=== PATIENT | female | born 1955 | race Caucasian/White ===

== ENCOUNTER 2020-08-30 16:59 | Outpatient (CLI) | payer OTHER, SELFPAY ==
--- NOTE | ~2020-08-30 | MM_ITS ---
EXAMINATION: MM screening elsy BI w tre HISTORY: Screening mammogram TECHNIQUE: Craniocaudal and mediolateral oblique 3-D tomosynthesis images were obtained and synthetic 2-D images were generated. CAD analysis was submitted and interpreted. COMPARISON: 03/12/2019 diagnostic right digital mammogram and limited right breast ultrasound 02/25/2019, 12/31/2017, 10/05/2016 bilateral digital screening mammogram examinations BREAST PARENCHYMAL COMPOSITION: There are scattered areas of fibroglandular density. FINDINGS: There is mild stable fibroglandular asymmetry. There is no evidence of suspicious mass, destiney cification, or architectural distortion to suggest malignancy in either breast. There has been no christo picious interval change. IMPRESSION: 1. No mammographic evidence of malignancy. 2. Recommend routine screening mammography in one year. BI-RADS Category 2: Benign finding(s). Reviewed, dictated and finalized at location A.
== END 2020-08-30 17:00 | disposition home or self-care (01) ==
LOC: ANHIMG 17:03
PROVIDERS: PCP Family Medicine; Visit Provider Obstetrics & Gynecology
DX: Z12.31 Encounter for screening mammogram for malignant neoplasm of breast (principal)
CPT/HCPCS: 77063; 77067

== ENCOUNTER 2021-01-02 18:27 | Emergency (ER) | payer OTHER, SELFPAY ==
--- NOTE | 2021-01-02 18:34 | ECG_ITS ---
Measurements Intervals [place] Rate: 88 P: 44 WI: 135 QRS: 71 QRSD: 90 T: 51 QT: 335 QTc: 407 Interpretive Statements SINUS RHYTHM NORMAL ECG Electronically Signed On 01-02-2021 19:24:13 [employer] by Jimenez Mark D.O.
[2021-01-02 18:38] VITALS: BP 119/70; PULSE 94; RESP 18; TEMP 36.3; O2SAT 100
[2021-01-02 20:50] VITALS: BP 129/79; PULSE 84; RESP 14; O2SAT 97
[2021-01-02 21:30] VITALS: BP 115/76; PULSE 86; RESP 19; O2SAT 96
[2021-01-02 21:30] LABS: Basophils Absolute Auto 0.1 K/mm3 (0.0-0.1); Basophils Percent Auto 1.2 % (0.2-1.2); Eosinophils Absolute Auto 0.1 K/mm3 (0-0.3); Eosinophils Percent Auto 1.5 % (0-4.4); Hematocrit 38.2 % (37.0-47.0); Hemoglobin 13.1 g/dL (12.0-15.0); Immature Granulocyte Absolute 0.02 K/mm3 (0.00-0.031); Immature Granulocyte Percent A 0.3 % (0-0.5); Lymphocytes Absolute Auto 0.83 K/mm3 (0.9-3.2); Lymphocytes Percent Auto 12.2 % (18.3-44.2); Mean Corpuscular HGB Conc 34.3 g/dl (32-36); Mean Corpuscular Hemoglobin 31.7 pg (26-34); Mean Corpuscular Volume 92.5 fl (80-100); Mean Platelet Volume 8.4 fl (7.4-10.4); Monocytes Absolute Auto 0.5 K/mm3 (0.1-0.6); Monocytes Percent Auto 7.9 % (2.6-8.5); Neutrophils Absolute Auto 5.2 K/mm3 (1.3-6.7); Neutrophils Percent Auto 76.9 % (45.5-73.1); Platelet Count Result 265 k/mm3 (150-375); Red Blood Count 4.13 M/mm3 (4.2-5.4); Red Cell Distribution Width 12.3 % (11.5-14.5); White Blood Count 6.8 K/mm3 (4.5-10.0)
--- NOTE | 2021-01-02 21:41 | ED.ARRPALP ---
HPI - Arrhythmia/Palpitations General Chief Complaint: Arrhythmia/Palpitations Stated Complaint: irregular heart beat Time Seen by Provider: 01/02/21 20:59 Source: patient Mode of arrival: ambulatory Limitations: no limitations History of Present Illness HPI narrative: This patient is a 65 year old female with history of paroxysmal atrial fibrillation who presents for evaluation of palpitations. She started having episodes yesterday in which she felt like her heart stopped. She reports having 2 episodes yesterday. Today it seems to be happening more frequently. She states she listened to her heart and she says it seemed like a pause. She denies associated chest pain, shortness of breath or dizziness. She denies nausea, vomiting, diarrhea. Related Data Allergies Allergy/AdvReac Type Severity Reaction Status Date / Time No Known Allergies Allergy Verified 04/11/20 11:05 Review of Systems Review of Systems: All systems reviewed & are unremarkable except as noted in HPI and below PMFSH Past Medical History Medical History (Updated 01/03/21 @ 00:00 by Elisabeth Vitale) Paroxysmal atrial fibrillation Surgical History Surgical History (Updated 04/11/20 @ 11:07 by Ariane Hankins MA) H/O dilation and curettage Hx of tubal ligation Family History Family History Father Family history of cardiac disorder Other No family history of cardiovascular disease No family history of cerebrovascular accident (CVA) Social History Social History Smoking status: Never smoker Alcohol intake: never Exam Const: General: no acute distress and alert Orientation/consciousness: patient oriented x3 Eyes: EOM: EOMs intact bilaterally Resp: Effort & Inspection: normal respiratory effort and no retractions Auscultation: clear to auscultation bilaterally Cardio: Rate: regular rate Rhythm: regular rhythm Heart sounds: no murmurs GI: GI Palp: Yes Soft to palpation, No Tenderness to palpation present (GI) and No Guarding due to palpation present (GI) Auscultation: normal bowel sounds Neuro: General: patient oriented x3 and moves all extremities Extrem: General: normal to inspection Psych: Mental Status: mental status grossly normal Affect: normal affect Course Reevaluation(s) Reevaluation #1: I Discussed with patient I did not see any abnormalities on child monitor or EKG. Labs are unremarkable. She will follow up with PCP for further evaluation and possible holter monitor. Date: 01/02/21 Time: 22:18 Vital Signs Vital signs: Vital Signs Temperature 97.3 F L 01/02/21 18:38 Pulse Rate 94 01/02/21 18:38 Respiratory Rate 18 01/02/21 18:38 Blood Pressure 119/70 01/02/21 18:38 Pulse Oximetry 100 01/02/21 18:38 Temperature 97.3 F L 01/02/21 18:38 Pulse Rate 86 01/02/21 22:30 Respiratory Rate 19 01/02/21 22:30 Blood Pressure 112/70 01/02/21 22:30 Pulse Oximetry 96 01/02/21 22:30 MDM - Arrhythmia/Palpitations Lab Data Attestation: I reviewed the patient's lab results. Result diagrams: 01/02/21 21:24 01/02/21 21:24 Labs: Lab Results 01/02/21 01/02/21 Range/Units 21:24 21:24 WBC 6.8 (4.5-10.0) K/mm3 RBC 4.13 L (4.2-5.4) M/mm3 Hgb 13.1 (12.0-15.0) g/dL Hct 38.2 (37.0-47.0) % MCV 92.5 (80-100) fl MCH 31.7 (26-34) pg MCHC 34.3 (32-36) g/dl RDW 12.3 (11.5-14.5) % Plt Count 265 (150-375) k/mm3 MPV 8.4 (7.4-10.4) fl Immature Gran % (Auto) 0.3 (0-0.5) % Neut % (Auto) 76.9 H (45.5-73.1) % Lymph % (Auto) 12.2 L (18.3-44.2) % [place] % (Auto) 7.9 (2.6-8.5) % Eos % (Auto) 1.5 (0-4.4) % Baso % (Auto) 1.2 (0.2-1.2) % Lymph # (Auto) 0.83 L (0.9-3.2) K/mm3 [place] # (Auto) 0.5 (0.1-0.6) K/mm3 Eos # (Auto) 0.1 (0-0.3) K/mm3 Baso # (Auto) 0.1
[2021-01-02 21:42] LABS: Alanine Aminotransferase 17 U/L (4-35); Albumin Level 4.3 g/dL (3.5-5.1); Alkaline Phosphatase 62 U/L (38-126); Anion Gap 5 mmol/L (8-16); Aspartate Amino Transferase 21 U/L (14-36); Bilirubin,Total 0.3 mg/dL (0.2-1.3); Blood Urea Nitrogen 15 mg/dL (7-17); Calcium 9.3 mg/dL (8.4-10.2); Carbon Dioxide 28 mmol/L (22-30); Chloride 105 mmol/L (98-107); Estimated CRCL calculation 54 ml/min; Estimated Glomerular Filt Rate > 60; Glucose 111 mg/dL (65-105); Magnesium 2.2 mg/dL (1.6-2.3); Potassium 4.2 mmol/L (3.4-5.0); Sodium 138 mmol/L (137-145)
[2021-01-02 21:54] LABS: Troponin I < 0.012 ng/mL (0.000-0.034)
[2021-01-02 22:30] VITALS: BP 112/70; PULSE 86; RESP 19; O2SAT 96
== END 2021-01-02 22:50 | disposition home or self-care (01) ==
PROVIDERS: Emergency Provider General Practice; PCP Family Medicine
DX: R00.2 Palpitations (principal); I48.0 Paroxysmal atrial fibrillation
CPT/HCPCS: 36415; 80053; 83735; 84484; 85025; 93005; 99284

== ENCOUNTER 2021-01-12 09:41 | Outpatient (CLI) | payer OTHER, SELFPAY ==
--- NOTE | 2021-01-16 12:48 | WPDHOLTEREM ---
Holter/Event Monitor Holter/Event Monitor Date of procedure: 01/12/21 Procedure Type: 24 hour holter monitor Indications: PVC's Conclusion: 1. 24 hour holter monitor on 01/12/21. 2. Underlying rhythm is sinus rhythm. HR range 52-118 bpm; average HR 79 bpm. 3. There are 7 premature supraventricular complexes and 1 supraventricular couplet. No supraventricular tachycardia. 4. There are 86 premature ventricular complexes. No ventricular tachycardia. 5. No sinoatrial or atrioventricular blocks. No significant pauses greater than 2 seconds. 6. Patient reports flutter and hard beat which demonstrate sinus rhythm, HR range 61-92 bpm and one PVC.
== END 2021-01-12 09:42 | disposition home or self-care (01) ==
LOC: ANHCARD 09:42
PROVIDERS: PCP Family Medicine; Visit Provider Family Medicine
DX: I49.3 Ventricular premature depolarization (principal)
CPT/HCPCS: 93225; 93226

== ENCOUNTER 2021-01-25 08:45 | Outpatient (RCR) | payer OTHER, SELFPAY ==
--- NOTE | 2021-01-17 13:50 | PTOPEVAL ---
INITIAL PHYSICAL THERAPY EVALUATION and PLAN OF CARE Thank you for referring Jess Rogers to [facility].? Jess is scheduled to be seen for physical therapy? 1 visit in 1 week, 1 visit in 2 wks after 1st follow up visit. Please review, sign, date and return this plan of care HAI. I agree with and certify that the following plan of care is medically necessary. Referring Physician Date Admitting Provider: Attending Provider: Germaine Ram MD Referring Provider: Germaine Ram MD *PT Outpatient Evaluation Start: 01/17/21 12:41 Freq: Status: Active Protocol: Document 01/17/21 12:38 HOA (Rec: 01/17/21 13:50 HOA [id number]) Therapy Assessment Status Assessment Status Assessment Status Evaluation Outpatient Past Medical History Past Medical History Source of Past Medical History Recalled from Previous Visit, Confirmed with Patient/Family Cardiovascular History Hx Atrial Fibrillation Yes Hx Palpitations Yes: 2020 Reproductive History Hx Post Menopausal Yes Evaluation Information Problem Diagnosis unspecified urinary incontinence Onset couple years ago Subjective Information Jess began to notice some Query Text:As Reported By Patient/ urinary leakage with running Family then as time went on began to notice leakage with picking up grandkids. With sneeze or cough - can cross legs to help prevent urinary leakage. Wants to prevent worsening of leakage - prefers not to take medication - rather do exercise. 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 Home Meds Must Be Re-entered With Each Visit. Home Setting Home Type House,Multiple Levels Environmental Barriers Stairs, Greater than 4 Mobility Assistive Devices (Used Last 3 None Months) Comments Additional Prior Level of Function grandkids - 4 y.o. and 4 Comments months Pain Assessment Timing of Pain Assessment Timing of Pain Assessment Assessment Self Report Self Report Pain Level 0 Pain Score Pain Score 0: Self Report Cervical and Lumbar ROM Lumbar ROM Lumbar ROM 50% of Normal Lumbar Comments
--- NOTE | 2021-02-16 12:55 | PCPTNOTE ---
PHYSICAL THERAPY DISCHARGE SUMMARY Admitting Provider: Attending Provider: Germaine Ram MD Patient:Jess Rogers Date of :1955 Jess has not returned for any further treatments since 01/25/2021, therefore she will be discharged at this time. Jess?s initial visit was on 01/17/2021 12:30 and she had a total of 2 visits. The goals have been partially met. Thank you for referring Jess to [facility]. Please review, sign, date and return this discharge summary HAI. I have been updated about Jess's current status and I agree with discharge from the above service at this time. Referring Physician Date
== END 2021-02-20 07:53 | disposition home or self-care (01) ==
LOC: ANHPT 08:45
PROVIDERS: PCP Family Medicine; Referring Provider Obstetrics & Gynecology; Visit Provider Obstetrics & Gynecology
DX: R32 Unspecified urinary incontinence (principal)
CPT/HCPCS: 97110; 97161

== ENCOUNTER 2021-09-19 15:05 | Outpatient (CLI) | payer OTHER, SELFPAY ==
--- NOTE | ~2021-09-19 | MM_ITS ---
EXAMINATION: MM screening elsy BI w tre HISTORY: Screening mammogram TECHNIQUE: Craniocaudal and mediolateral oblique 3-D tomosynthesis images were obtained and synthetic 2-D images were generated. CAD analysis was submitted and interpreted. COMPARISON: 08/30/2020 bilateral screening mammogram 03/12/2019 diagnostic right mammogram and limited right breast ultrasound 02/25/2019, 12/31/2017, 10/05/2016, 09/22/2015, 08/19/2014 bilateral screening mammogram examinations BREAST PARENCHYMAL COMPOSITION: There are scattered areas of fibroglandular density. FINDINGS: Stable mild fibroglandular asymmetry. There is no evidence of suspicious mass, calcificatio n, or architectural distortion to suggest malignancy in either breast. There has been no suspicious i nterval change. IMPRESSION: 1. No mammographic evidence of malignancy. 2. Recommend routine screening mammography in one year. BI-RADS Category 2: Benign finding(s). Reviewed, dictated and finalized at location A. 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
== END 2021-09-19 15:06 | disposition home or self-care (01) ==
PROVIDERS: PCP Family Medicine; Visit Provider Obstetrics & Gynecology
DX: Z12.31 Encounter for screening mammogram for malignant neoplasm of breast (principal)
CPT/HCPCS: 77063; 77067

== ENCOUNTER 2022-01-12 02:33 | Day surgery (SDC) | payer OTHER, SELFPAY ==
[2021-12-29 13:44] VITALS: BMI 26.7
--- NOTE | 2022-01-11 13:41 | WPDANESEPP ---
Anes - Eval Pre Procedure Procedure: Operation Date: 01/12/22 10:00 Proposed Procedures p Colonoscopy - Patricio Stevens MD Date/Time: 01/11/22 13:41 Pre Op Diagnosis: constipation Patient Data Age: 66 Gender: F Height: 1.65 m Weight: 73 kg Allergies Allergy/AdvReac Type Severity Reaction Status Date / Time No Known Allergies Allergy Verified 12/29/21 13:43 Home Medications Medication Instructions Recorded Confirmed Type diltiazem HCl 120 mg See Rx Instructions .ROUTE 11/08/21 12/29/21 Rx capsule,extended release 24 hr, .COMPLEX #90 cap controlled sodium,potassium,mag sulfates 17.5 See Rx Instructions PO .COMPLEX 12/22/21 Rx gram-3.13 gram-1.6 gram oral soln #354 ml Patient hx anesthesia problems: none Family hx anesthesia problems: none Results Review: All pre-operative results and documents have been reviewed as part of the pre-operative evaluation. [facility] Past Medical History Medical History (Updated 01/11/22 @ 13:41 by Angelito Vincent DO) Frequent PVCs Paroxysmal atrial fibrillation Surgical History Surgical History H/O dilation and curettage Hx of tubal ligation Family History Family History Father Family history of cardiac disorder Other No family history of cardiovascular disease No family history of cerebrovascular accident (CVA) Social History Social History Alcohol intake: never Living arrangements: alone Spiritual care concerns: No Exam Day of Procedure 01/11/22 13:41
[2022-01-12 09:10] VITALS: BP 124/79; PULSE 80; RESP 16; TEMP 36.9; O2SAT 100; BMI 26.6
[2022-01-12] MEDS: LACTATED RINGERS 1,000 ML 150 ML IV CONT (09:39)
--- NOTE | 2022-01-12 09:47 | WPDANESEFPP ---
Anes - Eval Final PreProcedure Day of Procedure 01/12/22 09:47 Patient weight: overweight Heart: regular rate and rhythm Lungs: clear to auscultation Airway: Mallampati scale class II Last oral intake: >/= 8 hours ASA classification: II Emergent: no Anesthetic plan: proceed Anesthesia type and monitoring: general GIVS and standard monitoring Results Review: All pre-operative results and documents have been reviewed as part of the pre-operative evaluation. Informed Consent: The patient's anesthetic plan and its attendant risks and benefits were discussed with the patient/family/POA. Questions were solicited and answers provided to the satisfaction of the patient/family/POA.
--- NOTE | 2022-01-12 09:51 | WPDGICN ---
Assessment and Plan Assessment and plan (1) Encounter for screening colonoscopy: Code(s): Z12.11 - Encounter for screening for malignant neoplasm of colon Status: Acute Assessment and Plan: Neoplasia screening advised because of her age. Colonoscopy will be performed. (2) Constipation: Code(s): K59.00 - Constipation, unspecified Status: Acute Assessment and Plan: Chronic idiopathic constipation appears likely. High-fiber diet is advised. Milk of magnesia twice a week basis is advised this can be increased if necessary. Colonoscopy will be arranged to exclude organic disease. GI Consult Note Consult date/time: 01/12/22 09:51 HPI: Jess Rogers is a 66 year old female Presents for screening colonoscopy. Patient has a long history of constipation. No specific etiology has been identified. Patient denies abdominal pain. She has had no bleeding. Family history is noncontributory. Patient does use magnesium or MiraLax on a p.r.n. basis but this often is not enough uncertain frequently has to disimpact herself. Screening colonoscopy is advised today to exclude organic disease contributing to constipation. Review of Systems Review of Systems: All systems reviewed & are unremarkable except as noted in HPI and below PMFSH Past Medical History Medical History (Updated 01/12/22 @ 09:53 by Patricio Stevens MD) Frequent PVCs Paroxysmal atrial fibrillation Surgical History Surgical History H/O dilation and curettage Hx of tubal ligation Family History Family History Father Family history of cardiac disorder Other No family history of cardiovascular disease No family history of cerebrovascular accident (CVA) Social History Social History Alcohol intake: never Living arrangements: alone Spiritual care concerns: No Meds Home Medications and Allergies Home Medications Medication Instructions Recorded Confirmed Type diltiazem HCl 120 mg See Rx Instructions .ROUTE 11/08/21 01/12/22 Rx capsule,extended release 24 hr, .COMPLEX #90 cap controlled Allergies Allergy/AdvReac Type Severity Reaction Status Date / Time No Known Allergies Allergy Verified 01/12/22 09:21 Vital Signs Vital Signs - 24 hr 01/12/22 09:10 Temperature 98.4 F Pulse Rate 80 Respiratory Rate 16 Blood Pressure 124/79 Pulse Oximetry 100 Exam Narrative: Physical exam reveals patient to be alert. Vital signs stable. HEENT exam is unremarkable. Patient is anicteric. Lungs are clear to auscultation and percussion. Heart is without murmur or extra sounds. Abdominal exam bowel sounds are present soft nontender with no organomegaly. Digital external rectal exam is normal.
[2022-01-12 10:17] VITALS: BP 91/56; PULSE 77; RESP 21; O2SAT 98
[2022-01-12 10:27] VITALS: BP 93/61; PULSE 77; RESP 15; O2SAT 98
[2022-01-12 10:37] VITALS: BP 106/72; PULSE 64; RESP 15; O2SAT 100
== END 2022-01-12 10:52 | disposition home or self-care (01) ==
PROVIDERS: PCP Family Medicine; Visit Provider Internal Medicine Gastroenterology
PROC: 0DJD8ZZ Inspection of Lower Intestinal Tract, Via Natural or Artificial Opening Endoscopic (ICD-10-PCS; CPT 45378; principal; 2022-01-12 10:00)
DX: Z12.11 Encounter for screening for malignant neoplasm of colon (principal); K59.00 Constipation, unspecified; I49.3 Ventricular premature depolarization; I48.0 Paroxysmal atrial fibrillation
CPT/HCPCS: 45378; J2704; J7120

== ENCOUNTER → 2022-05-11 13:40 | Outpatient (CLI) | payer OTHER, SELFPAY ==
--- NOTE | ~2022-05-11 | MR_ITS ---
EXAMINATION: MR knee RT wo con DATE: 05/11/2022 14:28 INDICATION: Anterior right knee pain x2 months. No trauma. TECHNIQUE: Magnetic resonance imaging (MRI) of the right knee was performed without intravenous contr ast. Sequences included axial PD-weighted FS FSE, coronal PD-weighted FSE and PD-weighted FS FSE, sag ittal PD-weighted FSE, and sagittal T2-weighted FS FSE. COMPARISON: None. FINDINGS: Medial compartment: Extensive degenerative signal change in the reduced volume meniscus, with medial extrusion, and linea r apical and horizontal areas of signal likely representing degenerative tears. Full-thickness cartil age loss. Moderate osteophytosis. Lateral compartment: Moderate cartilage thinning. Oblique undersurface tear of the posterior horn. Mild osteophytosis. Patellofemoral compartment: Full-thickness cartilage loss at the median ridge. Mild osteophytosis. Retinacula are intact. Ligaments and tendons: Flexor and extensor tendons are intact. ACL, PCL, MCL, and LCL are intact. Fluid: No significant joint fluid. Trace Monte's cyst. Osseous/other: Focal areas of subchondral marrow edema on the median ridge of the patella and on the femoral and tib ial surfaces in the medial compartment. IMPRESSION: 1. Severe osteoarthritic change in the medial compartment. 2. Degenerative signal change and tearing of the medial meniscus. 3. Oblique undersurface tear of the posterior horn, lateral meniscus. 4. Chondromalacia patella. Reviewed, dictated and finalized at location K.
== END ==
PROVIDERS: PCP Orthopaedic Surgery; Visit Provider Orthopaedic Surgery
DX: M25.551 Pain in right hip (principal); M17.11 Unilateral primary osteoarthritis, right knee; S83.241A Other tear of medial meniscus, current injury, right knee, initial encounter; S83.281A Other tear of lateral meniscus, current injury, right knee, initial encounter; M94.261 Chondromalacia, right knee
CPT/HCPCS: 73721

== ENCOUNTER 2023-02-24 16:52 | Emergency (ER) | payer MEDICARE, SELFPAY ==
[2023-02-24 17:02] VITALS: BP 103/79; PULSE 66; RESP 16; TEMP 36.9; O2SAT 100
--- NOTE | 2023-02-24 17:18 | ED.FEMALEGU ---
HPI - Female Genitourinary General Chief complaint: Urogenital-Female Stated complaint: uti Time Seen by Provider: 02/24/23 17:18 Source: patient Mode of arrival: ambulatory Limitations: no limitations History of Present Illness HPI Narrative: 67-year-old female presents with complaint of urinary frequency, urgency, dysuria since yesterday. Afebrile. Denies nausea vomiting diarrhea. Patient also reports some mild itching. 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 States she has to wear pads due to incontinence and she is concerned that wearing the pad and sweating cause a decent action. Denies any vaginal discharge. All systems reviewed and negative except as noted above. Related Data Home Medications Medication Instructions Recorded Confirmed magnesium oxide 250 mg PO DAILY 04/25/22 02/24/23 multivitamin 1 tablet PO DAILY 04/25/22 02/24/23 cholecalciferol (vitamin D3) 125 125 mcg PO DAILY 09/03/22 02/24/23 mcg (5,000 unit) capsule Allergies Allergy/AdvReac Type Severity Reaction Status Date / Time No Known Allergies Allergy Verified 02/24/23 16:53 Review of Systems Review of Systems: CONSTITUTIONAL: Denies fever, chills, or sweats. EYES: Denies visual changes, redness, or discharge. ENT: Denies rhinorrhea, congestion, sore throat, or otalgia. CARDIOVASCULAR: Denies chest pain, palpitations, or edema. RESPIRATORY: Denies cough or dyspnea. GASTROINTESTINAL: Denies abdominal pain, nausea, vomiting, or diarrhea. GENITOURINARY: Reports dysuria, urgency, frequency. Denies hematuria. Reports vaginal itching. SKIN: Denies rash or itching. MUSCULOSKELETAL: Denies back pain, joint pain, or myalgia. NEUROLOGIC: Denies headache, numbness, or weakness. PSYCHIATRIC: Denies anxiety or depression. All other systems reviewed are negative, except as documented in HPI. [facility] Past Medical History Medical History Atrial fibrillation Degenerative arthritis of knee, bilateral Frequent PVCs Paroxysmal atrial fibrillation Surgical History Surgical History H/O dilation and curettage Hx of tubal ligation Family History Family History Father Family history of cardiac disorder Malignant neoplasm of prostate Grandparent Hypertension Other No family history of cardiovascular disease No family history of cerebrovascular accident (CVA) Social History Social History (Updated 09/03/22 @ 08:41 by Penny Shelton) Social History: Caffeine-none Smoking status: Never smoker Alcohol intake: never Substance use: never Living arrangements: alone Occupation/Education: retired Spiritual care concerns: No Comments At time of signature, agree with nursing past medical, surgical, social and family history. There is no relevant family history pertinent to the presenting complaint. Exam Narrative: GENERAL: This is a well-nourished, well-developed patient, in no apparent distress. HEAD: normocephalic, atraumatic. EYES: PERRL. Sclera clear/white. Vision is grossly intact. EARS: External ears normal NOSE: External nose normal NECK: Neck supple, non-tender without lymphadenopathy, masses or thyromegaly. CARDIOVASCULAR: Regular rate and rhythm without murmurs, gallops, or rubs. RESPIRATORY: Clear to auscultation. Breath sounds equal bilaterally. No wheezes, rales, or rhonchi. SKIN: warm, Dry, intact with no suspicious lesions or rash, good texture and turgor. NEURO: awake, alert, and oriented to person, place and time. There were no obvious focal neurologic abnormalities. EXTREMITIES: No joint tenderness, effusion, or edema noted. Course Course Level of Care: Express Care Visit Vital Signs Vital signs: Vital Signs Temperature 36.9 C 02/24/23 17:02 Pulse Rate 66 04/
== END 2023-02-24 17:35 | disposition home or self-care (01) ==
PROVIDERS: Emergency Provider Nurse Practitioner Family; PCP Physician Assistant
DX: N39.0 Urinary tract infection, site not specified (principal); M17.0 Bilateral primary osteoarthritis of knee; I48.0 Paroxysmal atrial fibrillation
CPT/HCPCS: 81003; 87077; 87086; 87186; 99213; G0463

== ENCOUNTER 2023-03-07 08:57 | Outpatient (CLI) | payer MEDICARE, SELFPAY ==
--- NOTE | ~2023-03-07 | MM_ITS ---
EXAMINATION: MM screening elsy BI w tre HISTORY: Screening mammogram TECHNIQUE: Craniocaudal and mediolateral oblique 3-D tomosynthesis images were obtained and synthetic 2-D images were generated. CAD analysis was submitted and interpreted. COMPARISON: 09/19/2021, 08/30/2020 bilateral screening mammogram examinations Diagnostic right mammogram and limited right breast ultrasound examination 02/25/2019 bilateral screening mammogram BREAST PARENCHYMAL COMPOSITION: There are scattered areas of fibroglandular density. FINDINGS: Stable mild fibroglandular asymmetry. There is no evidence of suspicious mass, calcificatio n, or architectural distortion to suggest malignancy in either breast. There has been no suspicious i nterval change. IMPRESSION: 1. No mammographic evidence of malignancy. 2. Recommend routine screening mammography in one year. BI-RADS Category 1: Negative Reviewed, dictated and finalized at location A.
== END 2023-03-07 08:58 | disposition home or self-care (01) ==
LOC: ANHIMG 09:00
PROVIDERS: PCP Physician Assistant; Visit Provider Obstetrics & Gynecology
DX: Z12.31 Encounter for screening mammogram for malignant neoplasm of breast (principal)
CPT/HCPCS: 77063; 77067

== ENCOUNTER 2024-05-23 09:43 | Outpatient (CLI) | payer MEDICARE, SELFPAY ==
--- NOTE | ~2024-05-23 | DEXA_ITS ---
Bone Density Report Name: ED WHITMAN Age: 68 Sex: Female Ethnicity: White Date of : 1955 Indication: postmenopausal; screening for osteoporosis; history of glucocorticoids; Referring Provider: VEL MCPHERSON Study: Bone densitometry was performed. Exam Date: May 23, 2024 Accession number: [id number] Bone Density: Region BMD T-score Z-score Classification AP Spine(L1-L4) 0.923 -1.1 0.7 Osteopenia Femoral Neck (Left) 0.713 -1.2 0.4 Osteopenia Total Hip (Left) 0.934 -0.1 1.2 Normal Femoral Neck (Right) 0.691 -1.4 0.2 Osteopenia Total Hip (Right) 0.903 -0.3 1.0 Normal Total Hip Mean 0.918 -0.2 1.1 Normal World Health Organization criteria for BMD impression classify patients as: Normal (T-score at or above -1.0), Osteopenia (T-score between -1.0 and -2.5), or Osteoporosis (T-score at or below -2.5). 10-year Fracture Risk(1): Major Osteoporotic Fracture 14% Hip Fracture 1.8% Reported Risk Factors: [place] (), Neck BMD=0.691, BMI=27.9, glucocorticoids (1) FRAX(R) Version 3.08. Fracture probability calculated for an untreated patient. Fracture probability may be lower if the patient has received treatment. Clinical Information Provided by Patient: Has taken Glucocorticoids Has used the following medications: Vitamin D Patient maximum height was 64 Menopause Age: 59 Onset of menses at age 14 Number of children 2 Impression: The patient has low bone mass, based on the Right Femoral Neck T-score. The patient has an estimated ten-year risk of hip fracture of 1.8% and an estimated ten-year risk of major fracture of 14%, based on the WHO FRAX algorithm. The patient has risk factors, including: history of glucocorticoid therapy. Discussion: BONE DENSITY IS LOW AT ONE OR MORE SKELETAL SITES. This patient's lowest T-score is low at one or more skeletal sites. It meets the World Health Organization's (WHO) criteria for ?low bone mass? (T-score between -1.0 and -2.5). The patient's 10-year risk of fracture as calculated by FRAX is less than the threshold where pharmacological therapy is recommended by the National Osteoporosis Foundation (NOF). However, all treatment decisions require clinical judgment and consideration of individual patient factors, including patient preferences, comorbidities, previous drug use, risk factors not captured in the FRAX model (e.g., frailty, falls, vitamin D deficiency, increased bone turnover, interval significant decline in bone density) and possible under or overestimation of fracture risk by FRAX. The patient should follow a healthful lifestyle (good nutrition with adequate calcium and vitamin D, and appropriate weight-bearing exercise). Follow-Up: Consider repeating this study in 2 to 3 years to reassess this patient's status, or sooner if there is some new clinical indication. Reported by: MAGGY on 05/23/2024
--- NOTE | ~2024-05-23 | MM_ITS ---
EXAMINATION: MM screening elsy BI w tre HISTORY: Screening TECHNIQUE: Craniocaudal and mediolateral oblique 3-D tomosynthesis images were obtained and synthetic 2-D images were generated. CAD analysis was submitted and interpreted. COMPARISON: Comparison to multiple prior studies sequentially, with oldest reviewed study dated 12/31. BREAST PARENCHYMAL COMPOSITION: Dense: The breasts are heterogeneously dense, which may obscure small masses FINDINGS: There is no evidence of suspicious mass, calcification, or architectural distortion to sugg est malignancy in either breast. There has been no suspicious interval change. IMPRESSION: 1. No mammographic evidence of malignancy. 2. Recommend routine screening mammography in one year. BI-RADS Category 1: Negative Reviewed, dictated and finalized at location B.
== END 2024-05-23 09:44 | disposition home or self-care (01) ==
PROVIDERS: PCP Family Medicine; Visit Provider Obstetrics & Gynecology
DX: Z12.31 Encounter for screening mammogram for malignant neoplasm of breast (principal); Z78.0 Asymptomatic menopausal state; M85.88 Other specified disorders of bone density and structure, other site; M85.852 Other specified disorders of bone density and structure, left thigh; M85.851 Other specified disorders of bone density and structure, right thigh
CPT/HCPCS: 77063; 77067; 77080

== ENCOUNTER 2025-07-26 14:13 | Outpatient (CLI) | payer MEDICARE, SELFPAY ==
--- NOTE | ~2025-07-26 | MM_ITS ---
EXAMINATION: MM screening elsy BI w tre HISTORY: Screening TECHNIQUE: Craniocaudal and mediolateral oblique 3-D tomosynthesis images were obtained and synthetic 2-D images were generated. CAD analysis was submitted and interpreted. COMPARISON: 08/30/2020 BREAST PARENCHYMAL COMPOSITION: The breasts are heterogeneously dense, which may obscure small masses. FINDINGS: There is no evidence of suspicious mass, calcification, or architectural distortion to suggest malignancy. There has been no suspicious interval change. IMPRESSION: 1. No mammographic evidence of malignancy. Recommend routine screening mammography in one year. BI-RADS Category 2: Benign finding(s) Reviewed, dictated and finalized at location Q. IMPRESSION: 1. No mammographic evidence of malignancy. Recommend routine screening mammogra phy in one year. BI-RADS Category 2: Benign finding(s)
--- OUTSIDE RECORDS SUMMARY | 2025-07-26 17:08 | XMS_ITS | Encounter Summary ---
Author Organization Formerly [facility] Address [address] [place] [address] Care Team Providers Care Warehouse Production Worker Name Role Phone Corine Gutierrez DO Primary Care Provider [phone]- [phone] Encounter Details Date Type Department Care Team (Late st Contact Info) Description 06/02/2025 Results Follow-Up [facility] Cardiology at [address] [place] [address] Sarabjit Harmon MD [address] [facility] [address] [place] [address] NM MPI SPECT (Rest and/or Stress) Multiple Studies Social History Tobacco Use Types Packs/Day Years Used Date Smoking Tobacco: Never Smokeless Tobacco: Never Alcohol Use Standard Drinks/Week Comments Yes 0 (1 standard drink = 0.6 oz pur e alcohol) Comments Unknown Sex and Gender Information Value Date Recorded Sex Assigned at Not on file Legal Sex Female 2:17 AM CAREER GUIDANCE COUNSELOR Gender Identity Not on file Sexual Orientation Not on file documented as of this encounter Plan of Treatment Not on file documented as of this encounter Visit Diagnoses Not on filedocumented in this encounter Care Teams Warehouse Production Worker Relationship Specialty Start Date End Date Corine Gutierrez DO [address] [facility] [address] [place], [place] [id number] PCP - General Family Medicine 04/23/25 documented as of this encounter
--- OUTSIDE RECORDS SUMMARY | 2025-07-26 17:08 | XMS_ITS | Encounter Summary ---
Author Organization [facility] Address [address] [place] [address] Care Team Providers Care Decaler Name Role Phone Corine Gutierrez DO Primary Care Provider [phone]- [phone] Encounter Details Date Type Department Care Team (Late st Contact Info) Description 05/26/2025 Results Follow-Up [facility] Convenient Care at [address] [address] Lucila Viramontes NP 2 [facility] [address] [place], [place] [id number] Urine culture Urine, clean voided Social History Tobacco Use Types Packs/Day Years Used Date Smoking Tobacco: Never Smokeless Tobacco: Never Alcohol Use Standard Drinks/Week Comments Yes 0 (1 standard drink = 0.6 oz pur e alcohol) Comments Unknown Sex and Gender Information Value Date Recorded Sex Assigned at Not on file Legal Sex Female 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 [address] [place] [address] PCP - General Family Medicine 04/23/25 documented as of this encounter
--- OUTSIDE RECORDS SUMMARY | 2025-07-26 17:08 | XMS_ITS | Clinical Summary ---
Author Organization [facility] Address [address] [place] [phone] Phone Care Team Providers Care Crystallizer Operator Name Role Phone Bharathi Lozada MD Primary Care Provider [phone]- [phone] Allergies No known active allergies Medications diltiaZEM (CARDIZEM CD) 120 mg Controlled Delivery 24 hour capsule Take 120 mg by mouth daily. Active Active Problems No known active problems Social History Tobacco Use Types Packs/Day Years Used Date Smoking Tobacco: Never Smokeless Tobacco: Never Alcohol Use Standard Drinks/Week Comments Not Currently 0 (1 standard drink = 0.6 oz pur e alcohol) Comments No Sex and Gender Information Value Date Recorded Sex Assigned at Not on file Legal Sex Female 1:22 PM CDT Gender Identity Not on file Sexual Orientation Not on file Last Filed Vital Signs Vital Sign Reading Time Taken Comments Blood Pressure 110/68 05/05/2022 3:26 PM CDT Pulse 98 05/05/2022 3:26 PM CDT Temperature 36.4 C (97.6 F) 05/05/2022 3:26 PM CDT Respiratory Rate 15 05/05/2022 3:26 PM CDT Oxygen Saturation 100% 05/05/2022 3:26 PM CDT Inhaled Oxygen Concentration - - Weight 72.6 kg (160 lb) 05/24/2022 11:14 AM CDT Height 162.6 cm (5' 4) 05/24/2022 11:14 AM CDT Body Mass Index 27.46 05/24/2022 11:14 AM CDT Plan of Treatment Health Maintenance Due Date Last Done Comments DTAP/TDAP/TD VACCINES (1 - Tdap) 1976 BREAST CANCER SCREENING 1997 COLORECTAL SCREENING 2002 Colorectal Cancer Screening 2002 FIT-DNA Q 3 years 2002 FIT/FOBT Q 1 year 2002 Flex Sig/CT Colonography Q 5 years 2002 PNEUMOCOCCAL VACCINE 50+ YEARS (1 of 1 - PCV) 10/28/20 07 ZOSTER VACCINE (1 of 2) 2007 OSTEOPOROSIS SCREENING 2022 INFLUENZA VACCINE (#1) 2025 RSV VACCINE (60+ or ) (1 - 1-dose 75+ series) 2032 Insurance [facility] [employer] Care Teams Crystallizer Operator Relationship Specialty Start Date End Date Bharathi Lozada MD [address] [place] [id number] PCP - General Family Practice 05/05/22
--- OUTSIDE RECORDS SUMMARY | 2025-07-26 17:08 | XMS_ITS | Clinical Summary ---
Author Organization [facility] Address [address] [place] [address] Care Team Providers Care Lead Janitor Name Role Phone Romy Galicia MD Primary Care Provider [phone] Social History Tobacco Use Types Packs/Day Years Used Date Smoking Tobacco: Never Assessed Comments Unknown Sex and Gender Information Value Date Recorded Sex Assigned at Not on file Legal Sex Female 10:24 AM VARNISH BLENDER Gender Identity Not on file Sexual Orientation Not on file Plan of Treatment Health Maintenance Due Date Last Done Comments Colorectal Cancer Screening Colonoscopy (10 Years) 1957 Hepatitis C 1975 DTaP, Tdap and Td Vaccines ( 1 - Tdap) 1976 Mammogram Screening 1997 Pneumococcal Vaccine: 50+ Ye ars (1 of 1 - PCV) 2007 Zoster Vaccines (1 of 2) 2007 Annual Medicare Wellness Visit 2022 Dexa Scan (General) 2022 PHQ-2 (Physician Cordell) 11/11/2024 COVID-19 Vaccine (1 - 2023-2 5 season) 2025 RSV Immunization or 60+ Years (1 - 1-dose 75+ series) 2032 Meningococcal B Vaccine Aged Out No l onger eligible based on patient's age to complete this topic Meningococcal Vaccine Aged Out No alban delmis eligible based on patient's age to complete this topic RSV Immunizations Under 20 Months Aged Out No longer eligible based on patient's age to complete [place] [address] [employer] Care Teams Lead Janitor Relationship Specialty [place] [id number] [phone] PCP - General INTERNAL MEDICINE 02/04/25
--- OUTSIDE RECORDS SUMMARY | 2025-07-26 17:08 | XMS_ITS | Clinical Summary ---
[facility] Address [address] [place] [address] Care Team Providers Care Cafeteria Team Leader Name Role Phone Corine Gutierrez DO Primary Care Provider [phone] Allergies No known active allergies Medications cholecalciferol (VITAMIN D-3) 5,000 unit capsule Take 1 capsule (5,000 Units total) by mouth daily Active aspirin 81 mg enteric coated tabletIndicatio ns:prevention of thrombosis Take 1 tablet (81 mg total) by mouth daily 04/23/2025 6 Active Active Problems Problem Noted Date Diagnosed Date Parkinsonism 05/03/2025 Assessment & Plan (05/03/2025 1:43 PM CDT): 69 y.o. F h/o paroxysmal Afib, allergies, anemia, vit D defic, R knee OA, osteopenia, RLS (since age 37) with onset of R hand rest tremor and decreased R arm swing.1.5 years ago (age [age]) There is a family history of PD in her father and paternal grandfather. Examination today shows intermittent, frequently present R arm rest tremor, slight R arm rigidity, mild L and slight R bradykinesia, decreased R armswing. The history and examination provide evidence of parkinsonism. I suspect this is most likely idiopathic Parkinson Disease, given unilateral onset, asymmetric signs, and presence of rest tremor. Nonmotor features include RLS, fragmented sleep, constipation. Features of tremor observed today are entirely consistent with parkinsonian rest tremor and not dystonic tremor. We discussed approach to diagnosis and management of parkinsonism and suspected idiopathic PD at length. I recommend the following: We discussed MRI brain with and without contrast to rule out potential secondary causes of parkinsonism. We discussed trial of carbidopa/levodopa to target parkinsonism/tremor. She would like to think about it. I recommend regular cardiovascular exercise, strengthening and stretching exercises We can send a list of Mental Health providers and resources. We can provide information from the [place] [employer] (APDA). Nonrheumatic mitral valve regurgitation 04/23/20 Atypical chest pain 04/23/2025 Murmur, heart 10/15/2024 Other constipation 10/15/2024 Ventricular premature depolarization 02/01/2023 Lipid screening 02/01/2023 Atrial fibrillation 10/12/2014 Overview (02/15/2017): Atrial fibrillation Assessment & Plan (06/18/2019 10:27 AM CDT): One episode in 2013, with no recurrence since. She has a low chads Vasc score and does not require anticoagulation. If she should have a recurrence of atrial fibrillation, I would recommend that she go to the emergency room. I am perfectly comfortable with her following up only with her PCP at this point, and I will remain available on an as needed basis. I did review with her that it is likely that atrial fibrillation will recur at some point given her family history and the fact that she had an episode in 2013, but whether this will occur tomorrow or in 10 years is unknown. Assessment & Plan (06/13/2018 12:16 PM CDT): One episode four years ago. She has not had a recurrence on diltiazem. I recommended trying Metamucil for her constipation. For now, she would like to stay on diltiazem. Assessment & Plan (06/16/2017 5:10 PM CDT): One episode ever, in 2013. She has a structurally normal heart and no evidence of ischemic heart disease. She remains on diltiazem which she is tolerating well. I did not recommend any change in her current regimen. Encounters Date Type Department Care Team Description 06/02/2025 Results Follow-Up [facility] Cardiology at [address] [place] [address] Korey Harmon MD [place] MPI SPECT (Rest and/or Stress) Multiple Studies 06/01/2025 9:00 AM CDT Ancillary Procedure [facility] Cardiology at [address] [place] [phone] Atypical chest pain 05/26/2025 Results Follow-Up [facility] Care at [address] [phone] Lucila Viramontes, [place] Urine culture Urine, clean voided 05/23/2025 7:30 PM CDT Office Visit [facility] Care at [address] [phone] Michelle Hu PA Acute cystitis with hematuria (Primary Dx) 05/23/2025 12:31 AM CDT - 05/23/2025 11:59 PM CDT Hospital Encounter [address] [address] Acute cystitis with hematuria Discharge Disposition: Discharge to home or self care 05/17/2025 Telephone [facility] Cardiology [address] [facility] [address] [place] [address] Korey Harmon MD 05/03/[address] [facility] Medicine Movement Disorders [address] [facility] [address] [place] [phone] Ashkan Luther III, MD PhD Parkinsonism, unspecified Parkinsonism type (HCC) (Primary Dx) 04/30/2025 2:00 PM CDT Office Visit [facility] Medicine Movement Disorders [address] [facility] 7th [place] [phone] Ashkan Luther III, MD PhD Parkinsonism, unspecified Parkinsonism type (HCC) (Primary Dx); Tremor of right hand 04/26/2025 Telephone [facility] Cardiology [address] [facility] [address] [place] [address] Korey Harmon MD from Last 3 Months Medical History Medical History Date Comments Hx Other Medical seasonal allerg ies, D&C, anemia; Comments: [facility] 10/12/2014 - Atrial fibrillation (HCC) one-ti me episode Family History Medical History Relation Name Comments Cardiomyopathy Brother 1 Cardiomyopath y; Atrial fibrillation Father Atrial f ibrillation; Other Father Cardiac arrhyth mias; Parkinsonism Father Prostate cancer Father Cancer, pros queen; Cancer Mother Kaitlyn Clotting disorder Mother Kaitlyn Parkinsonism Paternal Grandmother Relation Name Status Comments Brother 1 Alive Brother 2 Alive Daughter Alive Father Mother Kaitlyn Paternal Grandmother Son Alive Social History Tobacco Use Types Packs/Day Years Used Date Smoking Tobacco: Never Smokeless Tobacco: Never Tobacco Cessation:Counseling Given: Not Answered Alcohol Use Standard Drinks/Week Comments Yes 0 (1 standard drink = 0.6 oz pur e alcohol) Comments Unknown Sex and Gender Information Value Date Recorded Sex Assigned at Not on file Legal Sex Female 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 Gender Identity Not on file Sexual Orientation Not on file Obstetrics History Last Filed Vital Signs Vital Sign Reading Time Taken Comments Blood Pressure 130/81 05/23/2025 7:31 PM CDT Pulse 77 05/23/2025 7:31 PM CDT Temperature 36.8 C (98.3 F) 05/23/2025 7:31 PM CDT Respiratory Rate 20 05/23/2025 7:31 PM CDT Oxygen Saturation 99% 05/23/2025 7:31 PM CDT Inhaled Oxygen Concentration - - Weight 75.3 kg (166 lb) 05/23/2025 7:31 PM CDT Height 162.6 cm (5' 4) 04/30/2025 1:33 PM CDT Body Mass Index 28.49 04/30/2025 1:33 PM CDT Plan of Treatment Health Maintenance Due Date Last Done Comments Breast Cancer Screening-Mammogram 1957 Colon Cancer Screening-Colonoscopy 1957 Depression Screening 1957 Fall Risk Assessment 1957 Hepatitis C Screening 1957 Osteoporosis Screening-Bone Density Scan 1957 DTaP/Tdap/Td Vaccine (1 - Tdap) 1968 Hepatitis B Screening 1975 Zoster Vaccine (1 of 2) 2007 Pneumococcal vaccine 65+ (2 of 2 - PCV20 or PCV21) 04/11/2021 04/11/2020 Well Visit 65+ 2022 Covid-19 Vaccine (2023-2 5 season) 2025 10/14/2024, 12/13/2023, 09/22/2022, Additional history exists Influenza Vaccine (#1) 2025 , 09/27/2023, 08/23/2022, Additional history exists Procedures Procedure Name Priority Date/Time Associated Diagnosis Comments NM MPI SPECT (REST AND/OR STRESS) MULTIPLE STUDIES Schedule Routine, Read Routine (OP Routine) 06/01/2025 10:42 AM CDT Atypical chest pain URINE CULTURE Routine 05/23/2025 7:46 PM CDT Acute cystitis with hematuria POCT URINALYSIS DIPSTICK Routine 05/23/2025 7:45 PM CDT Acute cystitis with hematuria from Last 3 Months Results * NM MPI SPECT (Rest and/or Stress) Multiple Studies (06/01/2025 10:42 AM CDT) Anatomical Region Laterality Modality Body N/A Electrocardiogra phy 06/01/2025 9:00 AM CDT Narrative 06/01/2025 4:23 PM CDT [facility] Cardiology [address] [facility] [address] [address] [address] [address] [facility] [address], [place] [address] [address], [place] [address] P:[phone] P:[phone] MPI Imaging Report Patient Name: JESS ROGERS K : 1955 Study Date: 06/01/2025 9:00:00 AM Gender: F Tech: JERRY FELIPE Location: [place] Ref Provider: KOREY HARMON Height(Cm): 162.6 BSA: Weight(Kg): 75.3 Heart Rate: 130 BMI: 28.48 Order Provider: KOREY HARMON PHYSICIAN: Primary Care Physician: Dr. Gutierrez. [facility] Physician: Rohan Harmon M.D. Stress Supervision: Rohan Harmon M.D. Stress Interpreting Physician: Rohan Harmon M.D. Image Interpreting Physician: Rohan Harmon M.D. PROCEDURES: Pharmacologic SPECT Report: Myocardial perfusion imaging with Tc99M Sestamibi SPECT at rest and stress post regadenoson (Lexiscan) infusion. INDICATIONS: Paroxysmal Atrial Fibrillation and R07.89 Other chest pain. FINDINGS: Procedural Findings: One day rest/stress was used. Tc99m Sestamibi injected IV at rest was 10.8 millicuries 32.8 millicuries of Tc99M Sestamibi injected IV during Lexiscan stress Lexiscan 0.4mg given IV over 10 seconds with low level exercise: 1.2 MPH Patient had no symptoms during stress test. Baseline heart rate was 76 BPM Maximum Heart Rate Achieved was: 114 BPM Baseline blood pressure was 103/76 mmHg Post Stress Blood Pressure was 121/65 mmHg Termination: Protocol complete. Resting ECG: Normal sinus rhythm. Post ECG: No diagnostic ST changes. Arrhythmia: No arrhythmias seen. Perfusion Findings: Normal perfusion imaging. No definite fixed or reversible defects. Technical quality of study is excellent. Prone imaging was not performed. Left ventricle cavity size at rest is normal. Left ventricle cavity size with stress is unchanged. A TID of 0.87 was automatically calculated. LV Function: Global left ventricular function is normal. Left ventricular ejection fraction is 73 %. CONCLUSIONS: Global left ventricular function is normal. Left ventricular ejection fraction is 73 %. Myocardial perfusion imaging is normal. Negative EKG portion of stress test. Attenuation correction utilized for the interpretation of this study. Electronically Signed By: Korey Harmon MD 06/01/2025 3:59:47 PM CDT Electronically Signed By: Korey Harmon MD 06/01/2025 3:59:47 PM CDT Procedure Note Korey Harmon MD - 06/01/2025 [facility] Cardiology [address], [place] [address] [address] [facility] [address], [place] [address], [place] [address] P:[phone] P:[phone] MPI Imaging Report Patient Name: JESS ROGERS K : 1955 Study Date: 06/01/2025 9:00:00 AM Gender: F Tech: DESTINEE [facility] Location: [facility] Provider: KOREY HARMON Height(Cm): 162.6 BSA: Weight(Kg): 75.3 Heart Rate: 130 BMI: 28.48 Order Provider: KOREY HARMON PHYSICIAN: Primary Care Physician: Dr. Gutierrez. [facility] Physician: Rohan Harmon M.D. Stress Supervision: Rohan Harmon M.D. Stress Interpreting Physician: Rohan Harmon M.D. Image Interpreting Physician: Rohan Harmon M.D. PROCEDURES: Pharmacologic SPECT Report: Myocardial perfusion imaging with Tc99M Sestamibi SPECT at rest and stresspost regadenoson (Lexiscan) infusion. INDICATIONS: Paroxysmal Atrial Fibrillation and R07.89 Other chest pain. FINDINGS: Procedural Findings: One day rest/stress was used. Tc99m Sestamibi injected IV at rest was 10.8 millicuries 32.8 millicuries of Tc99M Sestamibi injected IV during Lexiscan stress Lexiscan 0.4mg given IV over 10 seconds with low level exercise: 1.2MPH Patient had no symptoms during stress test. Baseline heart rate was 76 BPM Maximum Heart Rate Achieved was: 114 BPM Baseline blood pressure was 103/76 mmHg Post Stress Blood Pressure was 121/65 mmHg Termination: Protocol complete. Resting ECG: Normal sinus rhythm. Post ECG: No diagnostic ST changes. Arrhythmia: No arrhythmias seen. Perfusion Findings: Normal perfusion imaging. No definite fixed or reversible defects.Technical quality of study is excellent. Prone imaging was not performed. Left ventricle cavitysize at rest is normal. Left ventricle cavity size with stress is unchanged. A TID of0.87 was automatically calculated. LV Function: Global left ventricular function is normal. Left ventricular ejectionfraction is 73 %. CONCLUSIONS: Global left ventricular function is normal. Left ventricular ejectionfraction is 73 %. Myocardial perfusion imaging is normal. Negative EKG portion of stress test. Attenuation correction utilized for the interpretation of this study. Electronically Signed By: Korey Harmon MD 06/01/2025 3:59:47 PM CDT Electronically Signed By: Korey Harmon MD 06/01/2025 3:59:47 PM CDT Korey Harmon MD IMG [facility] PROCEDURES Final R esult * (ABNORMAL) Urine culture Urine, clean voided (05/23/2025 7:46 PM CDT) Report Final Report: Greater than or equal to 100,000 colonies/mL of Escherichia coli (.) Comment:Testing performed by : [facility], [address] [place] [address] Organism [facility] Urine, clean voided 05/23/2025 7:46 PM CDT 05/24/2025 6:40 AM CDT Narrative JANKI - 05/26/2025 8:44 AM CDT Testing performed by [facility] Microbiology Laboratory ([phone]) Organism Antibiotic Method Susceptibility Escherichia coli Ampicillin INTERPRETATION Intermediate Escherichia coli Cefazolin INTERPRETATION Susceptible Escherichia coli Nitrofurantoin INTERPRETATION Susceptible Escherichia coli Gentamicin INTERPRETATION Susceptible Escherichia coli Trimethoprim with Sulfamethoxazole IN TERPRETATION Susceptible Escherichia coli Meropenem INTERPRETATION Susceptible Escherichia coli Cefepime INTERPRETATION Susceptible Escherichia coli Ciprofloxacin INTERPRETATION Susceptible Escherichia coli Ceftazidime INTERPRETATION Susceptible Escherichia coli Ceftriaxone INTERPRETATION Susceptible Escherichia coli Piperacillin/Tazobactam INTERPRETATIO N Susceptible Escherichia coli Cephalexin INTERPRETATION Susceptible Escherichia coli Cefuroxime-axetil INTERPRETATION Susceptible Escherichia coli Cefdinir INTERPRETATION Susceptible Michelle RYAN [facility] MICROBIOLOGY - GENER AL ORDERABLES Final Result JANKI MCMILLAN [address] [place] [address] * (ABNORMAL) POCT urinalysis dipstick (05/23/2025 7:45 PM CDT) Color, Urine, POC Red Clarity, ur, POC Cloudy(A) Clear Glucose, ur, POC Negative Negative Bilirubin, ur, POC Small(A) Negative Ketones, ur, POC Trace(A) Negative Specific [place], POC 1.025 1.003 - 1.030 Blood, ur, POC Large(A) Negative pH, ur, POC 6.0 5.0 - 8.0 Protein, ur, POC 300.(A) Negative Urobilinogen, urine, POC 1.0 0.2 - 1.0 mg/dL Nitrite, ur, POC Positive(A) Negative Leukocytes, ur, POC Large(A) Negative Lot Number [id number] Urine 05/23/2025 7:45 PM CDT Michelle RYAN POINT OF CARE TEST ORDER ALE Final Result from Last 3 Months Insurance [employer] MEDICARE T MEDICARE T MEDICARE Care Teams Cafeteria Team Leader Relationship Specialty Start Date End Date Corine Gutierrez DO [address] [place] [address] [place] [address] PCP - General Family Medicine 04/23/25
--- OUTSIDE RECORDS SUMMARY | 2025-07-26 17:08 | XMS_ITS | Clinical Summary ---
Author Organization [facility] [employer] Address [address] [place] [address] Care Team Providers Care Store Receiving Clerk Name Role Phone Cynthia Luther MD Primary Care Provider [phone] Source Comments [employer] [facility],non-owned Affiliates and Associated Physician Practices is amultiple site organization consisting of ambulatory clinics and hospital sitesin [place], [place], [place] and [place]. This disclosure is being madepursuant to the Care Everywhere program and may not contain all information available regarding this patient. Last updated 18.[employer] [facility] Allergies No known active allergies Medications * Be aware that medications may not be up to date on this document. Alwaysverify current medications with the patient. 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 She has a [...] fact that she had an episode in 2014, but whether this will occur tomorrow or in 10 years is unknown. Social History Tobacco Use Types Packs/Day Years Used Date Smoking Tobacco: Never Smokeless Tobacco: Never Tobacco Cessation:Counseling Given: Not Answered Alcohol Use Standard Drinks/Week Comments Never 0 (1 standard drink = 0.6 oz pur e alcohol) Comments Unknown Sex and Gender Information Value Date Recorded Sex Assigned at Not on file Legal Sex Female 2:34 PM CDT Gender Identity Not on file Sexual Orientation Not on file Last Filed Vital Signs Vital Sign Reading Time Taken Comments Blood Pressure 102/70 08/13/2024 2:21 PM CDT Pulse 91 08/13/2024 2:21 PM CDT Temperature 36.7 C (98 F) 08/13/2024 2:21 PM CDT Respiratory Rate - - Oxygen Saturation 97% 08/13/2024 2:21 PM CDT Inhaled Oxygen Concentration - - Weight 78.2 kg (172 lb 8 oz) 08/13/2024 2:21 PM CDT Height 162.6 cm (5' 4) 08/13/2024 2:21 PM CDT Body Mass Index 29.61 08/13/2024 2:21 PM CDT Plan of Treatment Health Maintenance Due Date Last Done Comments BONE DENSITY TESTING 1957 COLOGUARD (AGES 45-75) - COL ON CA SCREENING 1957 COLON MONITORING 1957 COLONOSCOPY - COLON CA SCREENING 1957 CT COLONOGRAPHY - COLON CA SCREENING 1957 Colorectal Cancer Screening 1957 FIT - COLON CA SCREENING 1957 FLEX SIG - COLON CA SCREENING 1957 LIPID TESTING 1957 MAMMOGRAM 1957 HEPATITIS C SCREENING 10/24/1975 DTAP/TDAP/TD VACCINES (1 - Tdap) 1976 PNEUMOCOCCAL VACCINE 50+ (1 of 1 - PCV) 2007 ZOSTER VACCINE (1 of 2) 2007 SCREENING FOR DIABETES 08/13/2024 DEPRESSION SCREENING 11/11/2024 MEDICARE AWV CALENDAR YEAR 2024 COVID-19 VACCINE (1 - 2023-2 5 season) 2025 INFLUENZA VACCINE (#1) 2025 Respiratory Syncytial Virus (RSV) Vaccine Pt: or over 60 yrs (1 - 1-dose 75+ series) 2032 HEPATITIS B VACCINE Aged Out No longe r eligible based on patient's age to complete this topic HIB VACCINE Aged Out No longer eligi ble based on patient's age to complete this topic HPV VACCINE Aged Out No longer eligi ble based on patient's age to complete this topic MENINGOCOCCAL (Group B) VACC INE SHARED DECISION-MAKING Aged Out No longer eligibl e based on patient's age to complete this topic MENINGOCOCCAL GROUPS A/C/Y/W VACCINE Aged Out No longer eligible b ased on patient's age to complete this topic Insurance [employer] MEDICARE ADV Care Teams Store Receiving Clerk Relationship Specialty Start Date End Date Cynthia Luther MD [address] [place] [address] PCP - General Internal Medicine 08/13/24
== END 2025-07-26 14:14 | disposition home or self-care (01) ==
LOC: ANHFOHIMG 14:15
PROVIDERS: PCP Family Medicine; Visit Provider Obstetrics & Gynecology
DX: Z12.31 Encounter for screening mammogram for malignant neoplasm of breast (principal)
CPT/HCPCS: 77063; 77067